=== PATIENT | male | born 1965 | race Two or more races ===

== ENCOUNTER 2025-01-04 14:27 | Emergency (ER) | payer MEDICAID, OTHER ==
[~2025-01-04] VITALS: Ht 167.6 cm; Wt 58.0 kg
--- NOTE | 2025-01-04 15:05 | ED.PDOC ---
Radha. trauma (HPI) HPI Comments A 59 YEAR OLD MALE PRESENTS TO THE ED WITH COMPLAINT OF RIGHT HIP PAIN, RIGHT WRIST PAIN, AND HEADACHE STATUS POST FALL. PATIENT STATES HE ACCIDENTALLY FELL OFF OF A LADDER 1 WEEK AGO AND LANDED ON THE RIGHT SIDE OF HIS BODY. PATIENT REPORTS HE IS NOW EXPERIENCING RIGHT HIP PAIN, RIGHT WRIST PAIN, AND A HEADACHE OVER THE LAST 1 WEEK. PATIENT NOTES THAT HE WENT TO [facility] A FEW DAYS AGO WHERE IMAGING WAS DONE, BUT HE LEFT PRIOR TO RESULTS BEING GIVEN TO HIM. PATIENT DENIES NECK INJURY, LOC, FEVER, CHILLS, SHORTNESS OF BREATH, CHEST PAIN, ABDOMINAL PAIN, NAUSEA, VOMITING, HEADACHE, OR OTHER COMPLAINTS. NO OTHER SYMPTOMS OR MODIFYING FACTORS AT THIS TIME. PATIENT IS ALERT, ORIENTED X 4, AND HAS STEADY GAIT. Chief Complaint: Fall Injury Time Seen by MD: 14:39 Reviewed notes: Nurses Notes, Medications, Allergies Allergies: Coded Allergies: No Known Drug Allergy (Verified Allergy, Unknown, 01/04/25) Home Meds Active Scripts Hydrocodone-Acetaminophen (Hydrocodone Bitartrate/AC 5-325 mg) 1 Tab Tab, 1 TAB PO TID, #15 TAB Prov:REYNOLD BUENO 01/04/25 Information Source: Patient Mode of Arrival: Ambulatory Severity: Moderate Timing: Days Duration: Since onset, Days Prehospital treatment: None Location: Head, (R) Hip, (R) Wrist Location of laceration: None Mechanism: Fall Associated signs and symtoms: Headache Past Medical History PAST MEDICAL HISTORY: Denies Surgical History: Denies all surgeries Family History Family History: Reviewed,noncontributory to illness Social History Smoker: Non-Smoker Alcohol: Denies ETOH Use Drugs: Denies Drug Use Lives In: Home Constitutional: denies: chills, diaphoresis, fatigue, fever, malaise, sweats, weakness, others EENTM: denies: blurred vision, double vision, ear bleeding, ear discharge, ear drainage, ear pain, ear ringing, eye pain, eye redness, hearing loss, mouth pain, mouth swelling, nasal discharge, nose bleeding, nose congestion, nose pain, photophobia, tearing, throat pain, throat swelling, voice changes, others Respiratory: denies: cough, hemoptysis, orthopnea, SOB at rest, shortness of breath, SOB with excertion, stridor, wheezing, others Cardiovascular: denies: chest pain, dizzy spells, diaphoresis, Dyspnea on exertion, edema, irregular heart beat, left arm pain, lightheadedness, palpitations, PND, syncope, others Gastrointestinal: denies: abdomen distended, abdominal pain, blood streaked bowels, constipated, diarrhea, dysphagia, difficulty swallowing, hematemesis, melena, nausea, poor appetite, poor fluid intake, rectal bleeding, rectal pain, vomiting, others Genitourinary: denies: burning, dysuria, flank pain, frequency, hematuria, incontinence, penile discharge, penile sore, pain, testicle pain, testicle swelling, urgency, others Neurological: reports: headache; denies: dizziness, fainting, left sided numbness, left sided weakness, numbness, paresthesia, pre-existing deficit, right sided numbness, right sided weakness, seizure, speech problems, tingling, tremors, weakness, others Musculoskeletal: reports: joint pain, joint swelling, muscle pain, others (RIGHT WRIST PAIN, RIGHT HIP PAIN); denies: back pain, gout, muscle stiffness, neck pain Integumetry: denies: bruises, change in color, change in hair/nails, dryness, laceration, lesions, lumps, rash, wounds, others Allergic/Immunocompromised: denies: Difficulty Healing, Frequent Infections, Hives, Itching, others Hematologic/Lymphatic: denies: anemia, blood clots, easy bleeding, easy bruising, swollen glands, others Endocrine: denies: excessive hunger, excessive sweating, excessive thirst, excessive urination, flushing, intolerance to cold, intolerance to heat, unexplained weight gain, unexplained weight loss, others Psychiatric: denies: anxiety, bipolar disorder, depression, hopeless, panic disorder, schizophrenia, sleepless, suicidal, others All Other Systems: Reviewed and Negative Physical Exam General Appearance: Mild Distress, Normal HEENT: Head (NO CONTUSION AND HEMATOMA OF SCALP. ), Normal ENT Inspection, PERRL/EOMI, Pharynx Normal, TMs Normal Neck: Full Range of Motion, Non-Tender, Normal, Normal Inspection Respiratory: Chest Non-Tender, Lungs Clear, No Accessory Muscle Use, No Respiratory Distress, Normal Breath Sounds Cardiovascular: No Edema, No JVD, No Murmur, No Gallop, Normal Peripheral Pulses, Regular Rate/Rhythm Breast Exam: Deferred Gastrointestinal: No Organomegaly, Non Tender, No Pulsatile Mass, Normal Bowel Sounds, Soft Genitalia: Deferred Pelvic: Deferred Rectal: Deferred Extremities: Decreased range of motion, No calf tenderness, Normal capillary refill, No pedal edema, Swelling (TENDERNESS AND MILD SWELLING ON LEFT WRIST, NO BONY TENDERNESS AND DEFORMITY. ), Tender (BONY TENDERNESS AND MILD SWELLING ON RIGHT LATERAL HIP, NO REDNESS AND DEFORMITY, ROM DECREASED. ) Musculoskeletal : Apperance: Normal Neurologic: Alert, site worker II-XII nml as Tested, No Motor Deficits, Normal Affect, Normal Mood, No Sensory Deficits Cerebellar Function: Normal Reflexes: Normal Skin: Dry, Normal Color, Warm Peripheral Pulses: 2+ carotid (R), 2+ carotid (L), 2+ dorsalis pedis (R), 2+ dorsalis pedis (L) Lymphatic: No Adenopathy Was a procedure done? Was a procedure done?: No Differential Diagnosis Multiple Trauma: Closed Head Injury, Fractures, Cerebral Contusion, Contusion, Other (MUSCLE STRAIN, SPRAIN) Neck Injury: N/A X-Ray, Labs, Meds, VS Vital Signs Date Time Temp Pulse Resp B/P (MAP) Pulse Ox O2 Delivery O2 Flow Rate FiO2 01/04/25 14:30 97.5 106 16 128/71 98 97.5 Current Medications Medications (Trade) Dose Ordered Sig/Angelito Route Start Time Stop Time Status Last Admin Ketorolac Tromethamine (Toradol Injection) 60 mg ONCE ONCE IM 01/04/25 16:15 01/04/25 16:16 DC 01/04/25 17:17 CLINICAL INFORMATION: Fall injury. TECHNIQUE: Axial imaging was obtained through the brain without contrast. Coronal and sagittal reformatted images were obtained, reviewed, and stored. Images were reviewed in brain and bone windows. All CT scans at this medical facility are performed using dose modulation techniques as appropriate to a performed exam including the following: Automated exposure control was utilized; adjustment of the MA and/or KV according to patient size; and use of iterative reconstruction technique. CTDIvol = 53.65 mGy DLP = 936.64 mGy-cm COMPARISON: None FINDINGS: There is no acute intracranial hemorrhage. No mass effect or midline shift. The ventricles and sulci are within normal limits in size for age. Basal cisterns are patent. The calvarium is unremarkable. Paranasal sinuses and mastoid air cells are clear. IMPRESSION: No CT evidence of acute intracranial abnormality. ATED BY: CLEMENTE RUDD DO DICTATED DATE/TIME: 01/04/252 SIGNED BY: CLEMENTE RUDD DO SIGNED DATE/TIME: 01/04/25 1542 CC: CLINICAL INDICATION: FALL TECHNIQUE: 4 radiographic views of the right hip were obtained. Comparison: None FINDINGS/IMPRESSION: Questionable nondisplaced fracture greater trochanter right femur. If this is of clinical concern consider CT pelvis. ATED BY: MOOK QUINTANA Jr., DO DICTATED DATE/TIME: 01/04/251534 SIGNED BY: MOOK QUINTANA Jr., DO SIGNED DATE/TIME: 01/04/251534 CC: CLINICAL INDICATION: FALL TECHNIQUE: 3 radiographic views of the right wrist were obtained. Comparison: None FINDINGS/IMPRESSION: Bony structures are intact and normal alignment. No fractures or dislocations. No abnormal soft tissue calcifications. ATED BY: MOOK QUINTANA Jr., DO DICTATED DATE/TIME: 01/04/251536 SIGNED BY: MOOK QUINTANA Jr., DO SIGNED DATE/TIME: 01/04/251536 CC: COMPUTERIZED TOMOGRAPHY OF THE RIGHT HIP WITHOUT CONTRAST REASON FOR EXAM: FALL, R/O RIGHT GREATER TROCHANTER FX COMPARISON: XY R HIP COMPLETE XRAY on DOS: 01/04/25 TECHNIQUE: The exam was performed on a multidetector scanner. Thin slices were acquired through the right hip. Sagittal and coronal reformations were performed on a separate workstation. Radiation optimization: All CT scans at this facility use at least one of these dose optimization techniques: Automated exposure control mA and/or kV adjustment per patient size (includes targeted exams where dose is matched to clinical indication) or iterative reconstruction. RADIATION DOSE: CTDI: 8 mGy DLP: 211 mGy-cm FINDINGS: There is acute, mildly comminuted fracture of the greater trochanter of the right femur. The femoral neck appears intact. There is no dislocation of the femoral head with respect of the acetabulum. The visualized bones of the pelvis are intact. There is inflammatory stranding about the greater trochanter. There is no significant hip effusion. IMPRESSION: Acute, mildly comminuted fracture of the greater trochanter of the right femur. No femoral neck fracture. ATED BY: CLEMENTE QUIROZ MD DICTATED DATE/TIME: 01/04/251710 SIGNED BY: CLEMENTE QUIROZ MD SIGNED DATE/TIME: 01/04/251710 CC: X-Ray, Labs, Meds, VS Comment EXTERNAL MEDICAL RECORDS REVIEWED: [NONE] INDEPENDENT HISTORIANS: [NONE] SOCIAL DETERMINANTS OF HEALTH: [NONE] LABS ORDERED: NONE REVIEWED AND INTERPRETED RESULTS: NONE IMAGING ORDERED: CT BRAIN, XR HIP RT, XR WRIST RT, CT HIP RT TREATMENTS ORDERED: TORADOL 60 MG IM PROCEDURES PERFORMED: NONE CRITICAL CARE TIME: NONE I HAVE DISCUSSED THE PATIENT WITH THE ATTENDING PHYSICIAN DR. HERNANDES AND HE AGREES WITH THE PATIENT'S PLAN OF CARE AND DISPOSITION. 1600: I HAVE CONSULTED THE ON-CALL DOG BOARDER, DR. SANDERSON REGARDING THIS PATIENT'S X RAY RESULTS AND HE HAS SAID TO ORDER A CT SCAN OF THE PATIENT'S RIGHT LOWER EXTREMITY TO RULE OUT A RIGHT GREAT TROCHANTER FRACTURE. DR. SANDERSON HAS SAID THAT IF THE PATIENT'S CT OF HIS RIGHT HIP REVEALS A FRACTURE OF HIS RIGHT GREATER TROCHANTER, HE CAN STILL BE DISCHARGED HOME AND FOLLOW UP WITH THE DOG BOARDER OUTPATIENT. BASED ON HISTORY OF PRESENT ILLNESS, AND PHYSICAL EXAM, PATIENT WILL BE DISCHARGED HOME. DISCUSSED PLAN FOR DISCHARGE HOME WITH RX [NORCO 5/325MG]. MEDICATION WARNINGS GIVEN. SHARED DECISION MAKING: DISCUSSED WITH PATIENT THAT THEIR WORKUP WAS NORMAL. PATIENT INSTRUCTED TO FOLLOW UP WITH PRIMARY CARE PROVIDER IN 1-2 DAYS FOR RE- EVALUATION OF SYMPTOMS. PATIENT VERBALIZES UNDERSTANDING TO RETURN TO ED FOR NEW OR WORSENING SYMPTOMS OR IF FOLLOW UP WITH PCP CANNOT BE OBTAINED. PATIENT FEELS COMFORTABLE GOING HOME AT THIS TIME. ALL QUESTIONS ADDRESSED AT TIME OF DISCHARGE. Images Reviewed?: Images reviewed and evaluated by me Time of 1ST Reevaluation: 17:24 Reevaluation 1ST: Improved Consultation: Other (1600: I HAVE CONSULTED THE ON-CALL DOG BOARDER, DR. SANDERSON REGARDING THIS PATIENT'S X RAY RESULTS AND HE HAS SAID TO ORDER A CT SCAN OF THE PATIENT'S RIGHT LOWER EXTREMITY TO RULE OUT A RIGHT GREAT TROCHANTER FRACTURE. DR. SANDERSON HAS SAID THAT IF THE PATIENT'S CT OF HIS RIGHT HIP REVEALS A FRACTURE OF HIS RIGHT GREATER TROCHANTER, HE CAN STILL BE DISCHARGED HOME AND FOLLOW UP WITH THE DOG BOARDER OUTPATIENT.) Patient Education/Counseling: Diagnosis, Treatment, Need For Follow Up Family Education/Counseling: Diagnosis, Treatment, Need For Follow Up Medical Screening: No EMC Exist At This Time Departure 1 Departure Time of Disposition: 17:25 Impression: Primary Impression: Closed fracture of greater trochanter of right femur Qualified Codes: S72.114A - Nondisplaced fracture of greater trochanter of right femur, initial encounter for closed fracture Additional Impressions: Sprain of right wrist Qualified Codes: S63.501A - Unspecified sprain of right wrist, initial encounter Acute headache Qualified Codes: G44.319 - Acute post-traumatic headache, not intractable Status post fall Disposition: 01 HOME / SELF CARE / HOMELESS Condition: Stable Additional Instructions: FOLLOW-UP WITH PCP IN 1 TO 2 DAYS FOR REFERRAL TO DOG BOARDER. TAKE MEDICATIONS PRESCRIBED. RETURN TO ED FOR ANY NEW OR WORSENING SYMPTOMS. e-Prescriptions Hydrocodone-Acetaminophen (Hydrocodone Bitartrate/AC 5-325 mg) 1 Tab Tab 1 TAB PO TID, #15 TAB Prov: REYNOLD BUENO 01/04/25 Discharged With: Self Critical Care Note Critical Care Time?: No Stability Stability form required: No I personally scribed for REYNOLD BUENO ([email or web address]) on 01/04/25 at 15:05. Electronically submitted by Bernard Izaguirre ([email or web address]). I personally scribed for REYNOLD BUENO ([email or web address]) on 01/04/25 at 16:03. Electronically submitted by Bernard Izaguirre ([email or web address]). I personally scribed for REYNOLD BUENO ([email or web address]) on 01/04/25 at 17:18. Electronically submitted by Bernard Izaguirre ([email or web address]). I personally scribed for REYNOLD BUENO ([email or web address]) on 01/04/25 at 17:19. Electronically submitted by Bernard Izaguirre ([email or web address]). REYNOLD BUENO Jan 04, 2025 15:05
--- NOTE | 2025-01-04 15:37 | DVH ---
CLINICAL INDICATION: FALL TECHNIQUE: 4 radiographic views of the right hip were obtained. Comparison: None FINDINGS/IMPRESSION: Questionable nondisplaced fracture greater trochanter right femur. If this is of clinical concern con manager report CT pelvis.
--- NOTE | 2025-01-04 15:40 | DVH ---
CLINICAL INDICATION: FALL TECHNIQUE: 3 radiographic views of the right wrist were obtained. Comparison: None FINDINGS/IMPRESSION: Bony structures are intact and normal alignment. No fractures or dislocations. No abnormal soft tissue calcifications.
--- NOTE | 2025-01-04 15:44 | DVH ---
CLINICAL INFORMATION: Fall injury. TECHNIQUE: Axial imaging was obtained through the brain without contrast. Coronal and sagittal reform atted images were obtained, reviewed, and stored. Images were reviewed in brain and bone windows. Al l CT scans at this medical facility are performed using dose modulation techniques as appropriate to a performed exam including the following: Automated exposure control was utilized; adjustment of the MA and/or KV according to patient size; and use of iterative reconstruction technique. CTDIvol = 53.6 5 mGy DLP = 936.64 mGy-cm COMPARISON: None FINDINGS: There is no acute intracranial hemorrhage. No mass effect or midline shift. The ventricles and sulci are within normal limits in size for age. Basal cisterns are patent. The calvarium is unre markable. Paranasal sinuses and mastoid air cells are clear. IMPRESSION: No CT evidence of acute intracranial abnormality.
--- NOTE | 2025-01-04 17:13 | DVH ---
COMPUTERIZED TOMOGRAPHY OF THE RIGHT HIP WITHOUT CONTRAST REASON FOR EXAM: FALL, R/O RIGHT GREATER TROCHANTER FX COMPARISON: XY R HIP COMPLETE XRAY on DOS: 01/04/25 TECHNIQUE: The exam was performed on a multidetector scanner. Thin slices were acquired through the right hip. Sagittal and coronal reformations were performed on a separate workstation. Radiation optimization: All CT scans at this facility use at least one of these dose optimization stanley hniques: Automated exposure control mA and/or kV adjustment per patient size (includes targeted exams where dose is matched to clinical indication) or iterative reconstruction. RADIATION DOSE: CTDI: 8 mGy DLP: 211 mGy-cm FINDINGS: There is acute, mildly comminuted fracture of the greater trochanter of the right femur. The femoral neck appears intact. There is no dislocation of the femoral head with respect of the sahil tabulum. The visualized bones of the pelvis are intact. There is inflammatory stranding about the gre ater trochanter. There is no significant hip effusion. IMPRESSION: Acute, mildly comminuted fracture of the greater trochanter of the right femur. No femoral neck fract ure.
[2025-01-04] MEDS: KETOROLAC TROMETH 60MG/2ML VIAL IM ONE (17:17)
[2025-01-04] MEDS ORDERED: HYDR-4902 PO (17:19)
[2025-01-04 17:26] VITALS: BP 147/79; PULSE 104; RESP 18; TEMP 97.9; O2SAT 98
== END 2025-01-04 17:28 | disposition home or self-care (01) ==
LOC: ER 14:40
DX: S72.114A Nondisplaced fracture of greater trochanter of right femur, initial encounter for closed fracture (principal); S63.501A Unspecified sprain of right wrist, initial encounter; R51.9 Headache, unspecified; Z79.899 Other long term (current) drug therapy; Z79.891 Long term (current) use of opiate analgesic; W11.XXXA Fall on and from ladder, initial encounter; Y93.89 Activity, other specified; Y92.89 Other specified places as the place of occurrence of the external cause; Y99.8 Other external cause status
CPT/HCPCS: 70450; 73110; 73502; 73700; 96372; 99285; J1885